=== PATIENT | female | born 1985 | race Two or more races ===

== ENCOUNTER 2019-06-06 15:30 | Emergency (ER) | payer SELFPAY ==
--- NOTE | 2019-06-06 16:40 | ER Document Report ---
ED Medical Screen (RME) - General Chief Complaint: Chest Pain Stated Complaint: CHEST PAIN Time Seen by Provider: 06/06/19 16:35 Primary Care Provider: RAKESH TARANGO [Primary Care Provider] - Follow up as needed Mode of Arrival: Ambulatory Information source: Patient Notes: Patient is a 33-year-old female presents emergency department chief complaint of palpitations and intermittent chest pain shortness of breath. Patient reports symptoms have been going on for several months. She states that she cut all caffeine out approximately 1 month ago but continues to have palpitations. She currently denies any chest pain. Exam: Heart sounds S1-S2 present with no ectopy noted. Lung sounds clear and equal bilaterally. I have greeted and performed a rapid initial assessment of this patient. A comprehensive ED assessment and evaluation of the patient, analysis of test results and completion of the medical decision making process will be conducted by additional ED providers. I have specifically instructed the patient or family members with the patient to immediately return to any nursing staff should anything change in the patient's condition or with their chief complaint. This medical record was dictated with voice recognizing software. There may be grammatical, syntax errors that are unintended. TRAVEL OUTSIDE OF THE [place] IN LAST 30 DAYS: No - Related Data Allergies/Adverse Reactions: No Known Allergies Allergy (Unverified 07/08/12 09:24) Past Medical History - Social History Chew tobacco use (# tins/day): No Frequency of alcohol use: None Drug Abuse: None Physical Exam - Vital signs Vitals: Temp Pulse Resp BP Pulse Ox 99.5 F 87 18 141/94 H 98 06/06/19 15:46 06/06/19 15:46 06/06/19 15:46 06/06/19 15:46 06/06/19 15:46 Course - Vital Signs Vital signs: Temp Pulse Resp BP Pulse Ox 99.5 F 87 18 136/88 H 98 06/06/19 15:46 06/06/19 15:46 06/06/19 15:46 06/06/19 15:47 06/06/19 15:46 Doctor's Discharge - Discharge Referrals: RAKESH TARANGO [Primary Care Provider] - Follow up as needed
[2019-06-06 17:43] LABS: ABSOLUTE EOSINOPHILS # (AUTO) 0.1 10^3/uL (0.0-0.6); ABSOLUTE LYMPHOCYTES (AUTO) 2.1 10^3/uL (0.5-4.7); ABSOLUTE MONOCYTES (AUTO) 0.4 10^3/uL (0.1-1.4); ABSOLUTE NEUT (AUTO) 5.9 10^3/uL (1.7-8.2); BASOPHILS % (AUTO) 0.5 % (0-2); HEMATOCRIT 42.8 % (36.0-47.0); HEMOGLOBIN 14.7 g/dL (12.0-15.5); MEAN CORPUSCULAR HEMOGLOBIN 27.3 pg (27.0-33.4); MEAN CORPUSCULAR HGB CONC 34.3 g/dL (32.0-36.0); MEAN CORPUSCULAR VOLUME 80 fl (80-97); PLATELET COUNT 264 10^3/uL (150-450); RED BLOOD COUNT 5.37 10^6/uL (3.72-5.28); RED CELL DISTRIBUTION WIDTH 13.3 % (11.5-14.0); SEGMENTED NEUTROPHILS % (AUTO) 69.5 % (42-78); TOTAL CELLS COUNTED % (AUTO) 100 %; WHITE BLOOD COUNT 8.6 10^3/uL (4.0-10.5)
--- NOTE | 2019-06-06 17:50 | RADIOLOGY REPORT (SQ) ---
EXAM DESCRIPTION: CHEST 2 VIEWS COMPLETED DATE/TIME: 06/06/2019 5:12 pm REASON FOR STUDY: chest pain/palpitations COMPARISON: None. EXAM PARAMETERS: NUMBER OF VIEWS: two views TECHNIQUE: Digital Frontal and Lateral radiographic views of the chest acquired. RADIATION DOSE: NA LIMITATIONS: none FINDINGS: LUNGS AND PLEURA: No opacities, masses or pneumothorax. No pleural effusion. MEDIASTINUM AND HILAR STRUCTURES: No masses or contour abnormalities. HEART AND VASCULAR STRUCTURES: Heart normal size. No evidence for failure. BONES: No acute findings. HARDWARE: None in the chest. OTHER: No other significant finding. IMPRESSION: NO ACUTE RADIOGRAPHIC FINDING IN THE CHEST. TECHNICAL DOCUMENTATION: JOB ID: [id number] [employer]- All Rights Reserved Reading location - IP/workstation name: [email or web address]
[2019-06-06 18:03] LABS: ALBUMIN 4.8 g/dL (3.5-5.0); ALKALINE PHOSPHATASE 64 U/L (38-126); ANION GAP 11 (5-19); ASPARTATE AMINO TRANSFERASE 26 U/L (14-36); BILIRUBIN,TOTAL 0.5 mg/dL (0.2-1.3); BLOOD UREA NITROGEN 15 mg/dL (7-20); CALCIUM 10.2 mg/dL (8.4-10.2); CARBON DIOXIDE 26 mmol/L (22-30); CHLORIDE 101 mmol/L (98-107); GLUCOSE 101 mg/dL (75-110); POTASSIUM 4.2 mmol/L (3.6-5.0); TOTAL PROTEIN 8.4 g/dL (6.3-8.2)
--- NOTE | 2019-06-06 18:13 | ER Document Report ---
ED General Pain - General Chief Complaint: Chest Pain Stated Complaint: CHEST PAIN Time Seen by Provider: 06/06/19 16:35 Primary Care Provider: AGNIESZKA BUCK NP [ALLIED HEALTH PROFESSIONAL] - Follow up as needed RAKESH TARANGO [NO LOCAL ] - Follow up as needed Mode of Arrival: Ambulatory Information source: Patient TRAVEL OUTSIDE OF THE [place] IN LAST 30 DAYS: No - HPI Patient complains to provider of: palpitiations Onset: Just prior to arrival Onset/Duration: Gradual Severity: Moderate Associated symptoms: None Notes: 33 year old female has been having palpitations since the 30 of March. She has an increased amount of stress lately and despite reducing her caffiene is continuing to have a feeling of palpitations. She currently has that feeling. HR normal here today. - Related Data Allergies/Adverse Reactions: No Known Allergies Allergy (Unverified 07/08/12 09:24) Past Medical History - General Information source: Patient - Social History Smoking Status: Never Smoker Chew tobacco use (# tins/day): No Frequency of alcohol use: None Drug Abuse: None Family History: None Patient has suicidal ideation: No Patient has homicidal ideation: No Review of Systems - Review of Systems Constitutional: No symptoms reported EENT: No symptoms reported Cardiovascular: No symptoms reported Respiratory: No symptoms reported Gastrointestinal: No symptoms reported Genitourinary: No symptoms reported Female Genitourinary: No symptoms reported Musculoskeletal: No symptoms reported Skin: No symptoms reported Hematologic/Lymphatic: No symptoms reported Neurological/Psychological: No symptoms reported Physical Exam - Vital signs Vitals: Temp Pulse Resp BP Pulse Ox 99.5 F 87 18 141/94 H 98 06/06/19 15:46 06/06/19 15:46 06/06/19 15:46 06/06/19 15:46 06/06/19 15:46 Interpretation: Normal - General General appearance: Appears well, Alert - HEENT Head: Normocephalic, Atraumatic Eyes: Normal Pupils: PERRL - Respiratory Respiratory status: No respiratory distress Chest status: Nontender Breath sounds: Normal Chest palpation: Normal - Cardiovascular Rhythm: Regular Heart sounds: Normal auscultation Murmur: No - Abdominal Inspection: Normal Distension: No distension Bowel sounds: Normal Tenderness: Nontender Organomegaly: No organomegaly - Back Back: Normal, Nontender - Extremities General upper extremity: Normal inspection, Nontender, Normal color, Normal ROM, Normal temperature General lower extremity: Normal inspection, Nontender, Normal color, Normal ROM, Normal temperature, Normal weight bearing. No: Lola's sign - Neurological Neuro grossly intact: Yes Cognition: Normal Orientation: AAOx4 [place] Coma Scale Eye Opening: Spontaneous [place] Coma Scale Verbal: Oriented [place] Coma Scale Motor: Obeys Commands [place] Coma Scale Total: 15 Speech: Normal Motor strength normal: LUE, RUE, LLE, RLE Sensory: Normal - Psychological Associated symptoms: Normal affect, Normal mood - Skin Skin Temperature: Warm Skin Moisture: Dry Skin Color: Normal Course - Re-evaluation Re-evalutation: 06/06/19 18:48 MDM 33 year old with no cardiac risks is here with palpitations. Workup here is normal. She is under a fair amount of stress at home with caring for children and school. No chest pain here. She is safe and appropriate for follow up. She expressed understanding. - Vital Signs Vital signs: Temp Pulse Resp BP Pulse Ox 99.5 F 87 22 H 111/69 100 06/06/19 15:46 06/06/19 15:46 06/06/19 19:01 06/06/19 19:01 06/06/19 19:01 - Laboratory Result Diagrams: 06/06/19 17:19 06/06/19 17:19 Laboratory results interpreted by me: 06/06/19 06/06/19 17:19 17:19 RBC 5.37 H Total Protein 8.4 H - EKG Interpretation by Ne EKG shows normal: Sinus rhythm Rate: Normal - NSR NL [place] [address] elevation or depression my interpretation. Discharge - Discharge Clinical Impression: Palpitations Condition: Good Disposition: HOME, SELF-CARE Instructions: Palpitations (Irregular or Rapid Heartrate) ([facility]) Additional Instructions: See your doctor in follow up. Rest. Please return here for chest pain, shortness of breath or other problems or concerns. Referrals: SUKHDEEP,RAKESH [NO LOCAL MD] - Follow up as needed AGNIEZSKA BUCK NP [ALLIED HEALTH PROFESSIONAL] - Follow up as needed
[2019-06-06 18:21] LABS: FREE T4 (FREE THYROXINE) 0.98 ng/dL (0.78-2.19)
[2019-06-06 18:35] LABS: THYROID STIMULATING HORMONE 1.48 uIU/mL (0.47-4.68)
[2019-06-06 19:04] VITALS: BP 111/69
--- NOTE | 2019-06-06 21:01 | EKG REPORT ---
SEVERITY:- ABNORMAL ECG - SINUS TACHYCARDIA LEFT ATRIAL ABNORMALITY : Confirmed by: Linnea Pavon MD 06-Jun-2019 21:00:33
== END 2019-06-06 19:25 | disposition home or self-care (01) ==
LOC: ER 15:30
DX: R00.2 Palpitations (principal); F43.9 Reaction to severe stress, unspecified
CPT/HCPCS: 36415; 71046; 80053; 84439; 84443; 84484; 85025; 93005; 93010; 99285